=== PATIENT | female | born 1945 | race Caucasian/White ===

== ENCOUNTER 2019-04-11 05:25 | Day surgery (SDC) | payer MEDICARE, BC, MEDICAID ==
[2019-04-11] VITALS (12 sets, daily range): BP systolic 136–166; BP diastolic 48–61; PULSE 57–68; TEMP 97.4–97.7
[~2019-04-11] VITALS: Ht 167.6 cm; Wt 100.0 kg
[~2019-04-11 05:25] MED LIST: CELEXA 20MG20 MG/TAB PO; COREG 6.256.25 MG/TA PO; KLOR-CON M1010 MEQ PO; LANTUS SOLOS100 U/ML SQ; LASIX 80MG TABL80 MG PO; NORVASC2.5 MG PO; NOVOLOG FLEX100 U/ML; PROFE180 MG; SYNTHROID0.137 MG PO; VITAMIN C500 MG PO; VITAMIN D31000 I1 PO
[2019-04-11] MEDS ORDERED: LANTUS SOLOS100 U/ML SQ (06:31)
[2019-04-11] MEDS ORDERED: PROFE180 MG PO (06:32)
--- NOTE | 2019-04-11 10:58 | NUR ---
Sharyn received post op to room 322. Report from Rosa in [place]. Patient alert & oriented. Patient vss on O2. Patient only complaint at this time is of belching. Abdomen soft, robotic lap site bandaids intact. Scds ble. Ivf to L.hand. Daughter at bedside. Vik garcia
--- NOTE | 2019-04-11 13:24 | NUR ---
Patient sitting up in bed having a clear liquid tray, medicated with insulin per sliding scale. Report pain manged at this time. denies nausea
--- NOTE | 2019-04-11 14:04 | NUR ---
Patient up to the bathroom, voided. Reports soreness with movement, but overall did well. Vss on room air
--- NOTE | 2019-04-11 17:52 | NUR ---
Patient doing well. Scheduled tylenol per [facility]AS protocol relieved abdominal pain. Patient tolerating a full liquid tray taking it very slowly. Medicated with Novolog per orders. Vss on Room air. Iv to Int. scds ble. Abdominal lap sites drg intact. Will monitor & will report off to night nurse.
--- NOTE | 2019-04-11 21:00 | NUR ---
Patient in bed, is alert and oriented x4. Has lap sites x6 to abdomen, D/I. Reports passing gas. Is voiding without problem. SL to left hand without redness or swelling. Denies pain at this time. Taking scheduled ES Tylenol per ERAs protocol.
[2019-04-12 03:34] VITALS: BP 143/47; PULSE 60; TEMP 97.6
--- NOTE | 2019-04-12 03:45 | NUR ---
Patient awakened for scheduled ES Tylenol and VS. Patient denies pain at this time.
[2019-04-12 08:15] VITALS: BP 149/57; PULSE 61; TEMP 97.5
--- NOTE | 2019-04-12 11:04 | NUR ---
Assessment completed, alert/oriente, vital signs stable/ afebrile, reports mild pain/ controlled with scheduled tylenol, she is up ambulating, eating and drinking, denies any N/V, 6x Lap sites look good / no drainage, she denieso ther needs at this time
--- NOTE | 2019-04-12 11:16 | NUR ---
Initial visit; Patient thanked Professor Of Art for looking in on her and offering God's blessings.
[2019-04-12 12:32] VITALS: BP 137/51; PULSE 59; TEMP 98
--- NOTE | 2019-04-12 13:43 | NUR ---
GASTON met with the patient to discuss a discharge plan. The pt lives alone in [place]. The pt has a CPAP and receives her supplies in [place]. The pt reports independence with ADLs. The pt's PCP is Dr. Gray and the pt receives her medications from [facility]. The pt reports no difficulties obtaining her medications. The pt does not have advanced directives in the EMR, but was interested in obtaining a DPOA-HC form. GASTON provided the form. The pt plans to return home upon discharge. Her daughter, Adriane will pick her up to take her home. There are no additional needs at this time.
--- NOTE | 2019-04-12 14:35 | NUR ---
The patient completed a DPOA-HC form. Two SW witnessed the signature. The original was provided to the pt and the original was placed in the pt's chart. There are no additional needs at this time.
[2019-04-12 16:45] VITALS: BP 147/68; BP 149/51; PULSE 59; PULSE 87; TEMP 97.9
--- NOTE | 2019-04-12 16:45 | NUR ---
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
== END 2019-04-12 18:04 | disposition home or self-care (01) ==
LOC: SDCO 05:25 → SURG 10:32 → SDCO 04-12 18:04
DX: K21.9 Gastro-esophageal reflux disease without esophagitis (principal); K31.89 Other diseases of stomach and duodenum; K44.9 Diaphragmatic hernia without obstruction or gangrene; E11.319 Type 2 diabetes mellitus with unspecified diabetic retinopathy without macular edema; Z79.4 Long term (current) use of insulin; Z79.899 Other long term (current) drug therapy; Z90.49 Acquired absence of other specified parts of digestive tract
CPT/HCPCS: OP; A9284; C1781; J0690; J1100; J1815; J2270; J2405; J2704; J2710; J3010; J7030; J7042